=== PATIENT | female | born 1950 | race Caucasian/White ===

== ENCOUNTER 2017-03-05 13:14 | Outpatient (CLI) | payer MEDICARE ==
[2017-03-05 14:50] LABS: Bilirubin Negative (Negative); Blood, Urine Negative (Negative); Clarity CLEAR (Clear); Glucose, Urine (Dipstick) Negative (Negative); Leukocyte Negative (Negative); Nitrite Negative (Negative); Protein, Urine (Dipstick) Negative (Neg-Trace); Urobilinogen 0.2 mg/dL (0.2-1.0)
[2017-03-05 14:52] LABS: Bacteria/HPF None Seen HPF (None Seen); Hyaline Casts/LPF 0-3 HYALINE CAST LPF (0-3 Hyaline); RBC/HPF 0-3 HPF (0-3); Squamous Epithelial None Seen HPF (0-3); WBC/HPF None Seen HPF (0-3)
[2017-03-05 14:54] LABS: #Eosinphils 0.1 thou/uL (0.0-0.7); #Lymphocytes 1.8 thou/uL (1.20-3.40); #Monocytes 0.3 thou/uL (0.11-0.59); #Neutrophils 2.6 thou/uL (1.40-6.50); %Eosinophils 2.7 % (0.0-10.0); %Lymphocytes 37.5 % (21.0-51.0); %Monocytes 5.7 % (0.0-10.0); %Neutrophils 53.2 % (42.0-75.0); Hemoglobin 14.3 g/dL (12.0-16.0); Mean Corpuscular HGB CONC 32.8 g/dL (32.0-36.0); Mean Corpuscular Hemoglobin 32.5 pg (27.0-31.0); Mean Platelet Volume 7.7 fL (7.4-10.4); Platelet Count 244 thou/uL (130-400); RBC Distribution Width 11.5 % (11.5-14.5); White Blood Cell (WBC) Count 4.8 thou/uL (4.8-10.8)
[2017-03-05 15:03] LABS: PTT 27.4 SEC (22.9-36.1); Prothrombin Time 13.7 SEC (12.0-14.7)
[2017-03-05 15:18] LABS: Anion Gap 17 mmol/L (10-20); BUN (Urea Nitrogen) 19 mg/dL (9.8-20.1); Calc. Creatinine Clearance 0 mL/min (70-130); Calcium 10.1 mg/dL (7.8-10.44); Carbon Dioxide 21 mmol/L (23-31); Chloride 106 mmol/L (98-107); Estimated GFR-MDRD 72; Glucose 83 mg/dL (80-115); Potassium 3.9 mmol/L (3.5-5.1); Sodium 140 mmol/L (136-145)
--- NOTE | 2017-03-08 20:18 | EKG ---
Test Reason : Blood Pressure : / mmHG Vent. Rate : 065 BPM Atrial Rate : 065 BPM P-R Int : 178 ms QRS Dur : 092 ms QT Int : 448 ms P-R-T Axes : 057 044 036 degrees QTc Int : 465 ms Normal sinus rhythm Normal ECG No previous ECGs available Confirmed by FLORY BRADY, DR. Bennett ([id number]) on 03/08/2017 8:18:07 PM Referred By: IERO Confirmed By:DR. Sabrina RUTH MD
== END 2017-03-05 13:15 | disposition home or self-care (01) ==
LOC: LABBT 13:14
PROVIDERS: ATTEND Orthopaedic Surgery
DX: Z01.818 Encounter for other preprocedural examination (principal); Z96.652 Presence of left artificial knee joint; Z88.8 Allergy status to other drugs, medicaments and biological substances
CPT/HCPCS: 80048; 81001; 85025; 85610; 85730; 86850; 86900; 86901; 93005; 93010

== ENCOUNTER 2017-03-08 07:42 | Day surgery (SDC) | payer MEDICARE ==
[2017-03-08] MEDS ORDERED: CEFAZOLIN/Water 2 GM/20 ML SYRINGE ONE (08:15)
[2017-03-08] MEDS ORDERED: Tranexamic Acid 1,000 MG/100 ML BAG ONE ×2 (08:15→12:05)
[2017-03-08] MEDS ORDERED: Midazolam HCl 2 mg/2 ml Vial ONE (08:30)
[2017-03-08] MEDS ORDERED: Ropivacaine 0.2% HCl/PF 40 ML ONE (08:30)
[2017-03-08] MEDS ORDERED: Fentanyl 100 MCG/2 ML VIAL ONE ×2 (08:30→09:28)
[2017-03-08] MEDS ORDERED: Ropivacaine 0.2% 550 ML 550 ML NERVE BLCK SCH (09:10)
[2017-03-08] MEDS ORDERED: HYDROcodone/Acetaminophen 10/325 mg Tablet PO PRN (09:10)
[2017-03-08] MEDS ORDERED: Promethazine HCl 25 MG/ML VIAL IM PRN ×3 (09:10→11:50)
[2017-03-08] MEDS ORDERED: Zolpidem Tartrate 5 MG TAB PO PRN ×2 (09:10→11:35)
[2017-03-08] MEDS ORDERED: traMADol HCl 50 MG TAB PO PRN ×2 (09:10→11:35)
[2017-03-08] MEDS ORDERED: Ondansetron HCl/PF 4 MG/2 ML Vial IVP PRN ×3 (09:10→11:50)
[2017-03-08] MEDS ORDERED: Fentanyl 100 MCG/2 ML VIAL IV PRN (09:12)
[2017-03-08] MEDS ORDERED: Bupivacaine PF 0.5% 30 ML VIAL ONE (09:14)
[2017-03-08] MEDS ORDERED: diphenhydrAMINE 25 MG CAP PO PRN (11:35)
[2017-03-08] MEDS ORDERED: Acetaminophen 325 MG TAB PO PRN (11:35)
[2017-03-08] MEDS ORDERED: Tranexamic Acid 1,000 MG in Sodium Chloride 0.9% 100 ML IVPB SCH (11:45)
[2017-03-08] MEDS ORDERED: Promethazine HCl 25 MG/ML VIAL SLOW IVP PRN (11:50)
--- NOTE | 2017-03-08 12:07 | OP ---
DATE OF PROCEDURE: 03/08/2017 PREOPERATIVE DIAGNOSIS: Left knee osteoarthrosis. POSTOPERATIVE DIAGNOSIS: Left knee osteoarthrosis. PROCEDURE PERFORMED: Left total knee replacement using [employer] pinless navigation. SURGEON: Carlos Gay M.D. DIRECTOR OF FIRST IMPRESSIONS: Humberto Lyon PA-C. BLOOD LOSS: Minimal. COMPLICATIONS: None. ANESTHESIA: She did have general anesthetic. She did have preoperative blocks. She did go to [facility] room in stable condition. IMPLANTS: To the left knee is [place] Triathlon total knee system. We used a size 3 cruciate retain ing femur. We used a size 2 universal tibial baseplate. We used a size 2 x 9 mm CSX3 tibial bearing and asymmetric 27 x 8 X3 patella. DISPOSITION: She did go to recovery room in stable condition. INDICATIONS: A 66-year-old very active female who comes in complaining of left knee pain. The patie nt has tried dealing with this nonoperatively and at this time has failed. At this time, she wished to have her knee replaced. PROCEDURE IN DETAIL: After all appropriate consent forms were explained and signed, the patient was taken back to the Operating Room and at this time was given general anesthetic. Once the level of an esthesia was appropriate, a well-padded tourniquet was placed on the left leg and the leg was then pr epped and draped in standard surgical fashion. The limb was exsanguinated and tourniquet taken up to 300 mmHg. Midline incision was made with a 10 blade down through the skin and subcutaneous tissue. Bovie electrocautery was used to coagulate any brisk venous bleeding. A new blade was used to make a medial parapatellar arthrotomy. Small subperiosteal release was performed medially and excess fat pad was removed. The knee was flexed up to gain access to the femur. The femur was navigated and di stal femoral resection was made. Epicondylar access was used to align our sizing jig and this was pin lana in place. We sized our femur to be a 3, 4:1 cutting block was applied and pinned. Anterior and p osterior chamfer cuts were then made. We navigated out our proximal tibia and made our proximal tibi al resection. Spreaders were used to remove any posterior osteophytes off the back of the femur as w ell as remaining meniscal tissue. A long alignment taina was then used to achieve correct rotation of our tibial baseplate and a size 2 was chosen. This was pinned in place. We trialed the polyethylene and a CSX3 polyethylene gave us full extension and good stability throughout range of motion. Two t owel clips and a saw were used to cut our patella. Three lug nuts were drilled and 27 x 8 X3 patella was trialed which sat nicely in the trochlear groove. We then drilled our femur and punched our tib ia. All components were removed. The knee was thoroughly irrigated and dried. Cement was mixed int o the cement gun on the back table. Components were then placed. The knee was held out in full exte nsion until the cement had dried. All excess bone cement was removed. Multiple #2 Vicryl stitches a s well as a Quill was used to close our extensor mechanism. 0 Quill followed by a running Monoderm w as then used to close the skin. Surgicel glue was then used on the skin. Once this had dried, soft tissue dressing was applied to the limb, tourniquet was let down, and the toes pinked up nicely. The patient was then awakened and taken to the Recovery Room in stable condition. All counts were corre ct at the end of the case. The patient did receive preoperative IV antibiotics. The patient was inj ected with Exparel for postoperative pain relief.
[2017-03-08] MEDS ORDERED: Ketorolac Tromethamine 30 MG/ML VIAL ONE (12:11)
[2017-03-08] MEDS: Sodium Chloride 0.9% 1,000 ML IV SCH ×2 (13:17→21:42)
[2017-03-08] MEDS: Ketorolac Tromethamine 30 MG/ML VIAL IVP SCH ×2 (13:18→17:51)
[2017-03-08] MEDS ORDERED: Ropivacaine 0.5% HCl/PF (150 MG/30 ML VIAL) ONE (14:13)
--- NOTE | 2017-03-08 14:31 | PDOC.PN ---
- Subjective Encounter Start Date: 03/08/17 Encounter Start Time: 14:29 Pt seen for management of medical comorbidities, including hypertension. Denies chest pain, shortness of breath, fevers or chills. - Objective MAR Reviewed: Yes Vital Signs & Weight: Weight Weight 130 lb Phys Exam - Physical Examination Constitutional: NAD HEENT: moist MMs Neck: supple Respiratory: clear to auscultation bilateral Cardiovascular: RRR Gastrointestinal: soft s/p L knee surgery Psychiatric: normal affect Dx/Plan (1) HTN (hypertension) Code(s): I10 - ESSENTIAL (PRIMARY) HYPERTENSION Status: Chronic (2) GERD (gastroesophageal reflux disease) Code(s): K21.9 - GASTRO-ESOPHAGEAL REFLUX DISEASE WITHOUT ESOPHAGITIS Status: Chronic (3) Osteoarthritis Code(s): M19.90 - UNSPECIFIED OSTEOARTHRITIS, UNSPECIFIED SITE Status: Chronic (4) Osteoporosis Code(s): M81.0 - AGE-RELATED OSTEOPOROSIS W/O CURRENT PATHOLOGICAL FRACTURE Status: Chronic - Plan plan discussed w/ family, PT/OT, out of bed/ambulate * . Continue home medications. Monitor vital signs, titrate antihypertensives as needed. PRN IV hydralazine for blood pressure spikes. Continue PPI. Review of Systems - Review of Systems Respiratory: negative: Cough, Dry, Shortness of Breath, Hemoptysis, SOB with Excertion, Pleuritic Pain, Sputum, Wheezing Cardiovascular: negative: chest pain, palpitations, orthopnea, paroxysmal nocturnal dyspnea, edema, light headedness - Medications/Allergies Allergies/Adverse Reactions: Allergies Allergy/AdvReac Type Severity Reaction Status Date / Time naproxen Allergy DIZZINESS Verified 03/05/17 13:36 Medications: Current Medications Acetaminophen (Tylenol) 650 mg PO Q4H PRN PRN Reason: WHITT/ T > 101F; Mild Pain (1-3) Hydrocodone Bitart/Acetaminophen ([place] 10/325) 1 tab PO Q4H PRN PRN Reason: Pain (1-3) Hydrocodone Bitart/Acetaminophen ([place] 10/325) 2 tab PO Q4H PRN PRN Reason: PAIN (4-6) Aspirin (Aspirin) 325 mg PO BID [facility] Cefazolin Sodium (Ancef) 2 gm SLOW IVP 0100,0900,1700 [facility] Stop: 03/09/17 01:01 Diphenhydramine HCl (Benadryl) 25 mg PO Q6H PRN PRN Reason: Itching Fentanyl (Sublimaze) 50 mcg IV Q1H PRN PRN Reason: BREAKTHRU PAIN Last Admin: 03/08/17 13:21 Dose: 50 mcg Fentanyl (Pacu-Sublimaze) 50 mcg SLOW IVP Q10MIN PRN PRN Reason: Moderate to Severe Pain (6-10) Stop: 03/08/17 14:50 Ferrous Gluconate (Fergon) 324 mg PO BID [facility] Ropivacaine (Ropivacaine 0.2% 550 Ml) 550 mls @ 10 mls/hr NERVE BLCK INF [facility] Sodium Chloride (Normal Saline 0.9%) 1,000 mls @ 100 mls/hr IV .Q10H [facility] Last Admin: 03/08/17 13:17 Dose: Not Given Vancomycin HCl 1 gm/ Device 200 mls @ 200 mls/hr IVPB 2100 [facility] Stop: 03/08/17 23:00 Iron/Minerals/Multivitamins (Theragran M) 1 tab PO DAILY [facility] Ketorolac Tromethamine (Toradol) 15 mg IVP Q6HR [facility] Stop: 03/10/17 06:01 Last Admin: 03/08/17 13:18 Dose: Not Given Lisinopril (Zestril) 10 mg PO QAM [facility] Loratadine (Claritin) 10 mg PO QAM [facility] Ondansetron HCl (Zofran) 4 mg IVP Q6H PRN PRN Reason: Nausea/Vomiting Ondansetron HCl (Zofran) 4 mg IVP Q6H PRN PRN Reason: Nausea/Vomiting Ondansetron HCl (Pacu-Zofran) 4 mg IVP ONE PRN PRN Reason: Nausea/Vomiting Stop: 03/08/17 14:50 Pantoprazole Sodium (Protonix) 40 mg PO QAM [facility] Promethazine HCl (Phenergan) 12.5 mg IM Q4H PRN PRN Reason: Nausea Promethazine HCl (Phenergan) 12.5 mg IM Q4H PRN PRN Reason: Nausea/Vomiting Promethazine HCl (Pacu-Phenergan) 6.25 mg SLOW IVP ONE PRN PRN Reason: Nausea/Vomiting Stop: 03/08/17 14:50 Promethazine HCl (Pacu-Phenergan) 6.25 mg IM ONE PRN PRN Reason: Nausea/Vomiting Stop: 03/08/17 14:50 Senna/Docusate Sodium (Senokot S) 2 tab PO BID [facility] Sodium Chloride (Flush - Normal Saline) 10 ml IVF PRN PRN PRN Reason: Saline Flush Tramadol HCl (Ultram) 50 mg PO Q6H PRN PRN Reason: Mild Pain (1-3) Tramadol HCl (Ultram) 100 mg PO Q6H PRN PRN Reason: Moderate Pain 4-6 Zolpidem Tartrate (Ambien) 5 mg PO HSPRN PRN PRN Reason: Insomnia
[2017-03-08] MEDS ORDERED: hydrALAZINE 20 MG/ML VIAL SLOW IVP PRN (14:34)
[2017-03-08] MEDS ORDERED: Propofol 200 MG/20 ML VIAL ONE (14:43)
[2017-03-08] MEDS ORDERED: PHENYLEPHRINE-NS 100 MCG/ML 10 ML SYRINGE ONE (14:43)
[2017-03-08] MEDS: CEFAZOLIN/Water 2 GM/20 ML SYRINGE SLOW IVP SCH (17:54)
[2017-03-08] MEDS: HYDROcodone/Acetaminophen 10/325 mg Tablet PO PRN ×2 (18:12→21:38)
[2017-03-08] MEDS ORDERED: Vancomycin HCl 1 GM in Premix Bag 1 BAG IVPB SCH (21:00)
[2017-03-08] MEDS: Aspirin 325 MG TAB PO SCH (21:39)
[2017-03-09] MEDS: Ketorolac Tromethamine 30 MG/ML VIAL IVP SCH ×4 (00:08→17:41)
[2017-03-09] MEDS: CEFAZOLIN/Water 2 GM/20 ML SYRINGE SLOW IVP SCH (00:10)
[2017-03-09 05:38] LABS: Hemoglobin 10.5 g/dL (12.0-16.0); Mean Corpuscular HGB CONC 33.4 g/dL (32.0-36.0); Mean Corpuscular Hemoglobin 33.9 pg (27.0-31.0); Mean Platelet Volume 7.8 fL (7.4-10.4); Platelet Count 160 thou/uL (130-400); RBC Distribution Width 11.7 % (11.5-14.5); Red Blood Cell (RBC) Count 3.11 mill/uL (4.20-5.40); White Blood Cell (WBC) Count 3.8 thou/uL (4.8-10.8)
[2017-03-09] MEDS: HYDROcodone/Acetaminophen 10/325 mg Tablet PO PRN ×4 (07:01→21:10)
[2017-03-09] MEDS: Sodium Chloride 0.9% 1,000 ML IV SCH ×2 (08:14→17:33)
[2017-03-09] MEDS: Aspirin 325 MG TAB PO SCH ×2 (08:44→21:04)
[2017-03-09] MEDS: Loratadine 10 MG TAB PO SCH (08:44)
[2017-03-09] MEDS: Multivitamin W/ Minerals 1 TAB PO SCH (08:44)
[2017-03-09] MEDS: Senokot S 8.6-50 MG TAB PO SCH ×2 (08:44→21:04)
[2017-03-09] MEDS: Ferrous Gluconate 324 MG TAB PO SCH ×2 (08:44→21:04)
[2017-03-09] MEDS: traMADol HCl 50 MG TAB PO PRN (08:57)
[2017-03-09] MEDS: Lisinopril 10 MG TAB PO SCH (11:23)
[2017-03-09 13:49] VITALS: BMI 25.4
[2017-03-09] MEDS ORDERED: ALPRAZolam 0.5 MG TAB PO SCH (15:30)
--- NOTE | 2017-03-09 17:15 | PDOC.PN ---
- Subjective Encounter Start Date: 03/09/17 Encounter Start Time: 08:20 Pt seen for followup re: hypertension. No cheast pain, shortness fo breath, fevers or chills. - Objective Vital Signs & Weight: Vital Signs (12 hours) Temp Pulse Resp BP BP Pulse Ox 03/09/17 11:45 97.8 F 62 20 128/77 95 03/09/17 11:23 136/83 03/09/17 08:00 98.5 F 66 20 98 03/09/17 07:40 98.5 F 66 20 111/66 98 Weight Admit Weight 130 lb Weight 130 lb I&O: 03/08/17 03/09/17 03/10/17 06:59 06:59 06:59 Intake Total 1350 1400 Balance 1350 1400 Result Diagrams: 03/09/17 04:59 Phys Exam - Physical Examination Constitutional: NAD HEENT: moist MMs Neck: supple Respiratory: clear to auscultation bilateral Cardiovascular: RRR Gastrointestinal: soft Musculoskeletal: no edema s/p L knee surgery Neurological: moves all 4 limbs Psychiatric: normal affect Dx/Plan (1) HTN (hypertension) Code(s): I10 - ESSENTIAL (PRIMARY) HYPERTENSION Status: Chronic (2) GERD (gastroesophageal reflux disease) Code(s): K21.9 - GASTRO-ESOPHAGEAL REFLUX DISEASE WITHOUT ESOPHAGITIS Status: Chronic (3) Osteoarthritis Code(s): M19.90 - UNSPECIFIED OSTEOARTHRITIS, UNSPECIFIED SITE Status: Chronic (4) Osteoporosis Code(s): M81.0 - AGE-RELATED OSTEOPOROSIS W/O CURRENT PATHOLOGICAL FRACTURE Status: Chronic - Plan PT/OT, out of bed/ambulate * . Monitor vital signs and titrate blood pressure medications as needed. Review of Systems - Medications/Allergies Allergies/Adverse Reactions: Allergies Allergy/AdvReac Type Severity Reaction Status Date / Time naproxen Allergy DIZZINESS Verified 03/05/17 13:36 Medications: Current Medications Acetaminophen (Tylenol) 650 mg PO Q4H PRN PRN Reason: WHITT/ T > 101F; Mild Pain (1-3) Hydrocodone Bitart/Acetaminophen ([place] 10/325) 1 tab PO Q4H PRN PRN Reason: Pain (1-3) Hydrocodone Bitart/Acetaminophen ([place] 10/325) 2 tab PO Q4H PRN PRN Reason: PAIN (4-6) Last Admin: 03/09/17 15:20 Dose: 2 tab Alprazolam (Xanax) 0.5 mg PO BID [facility] Alprazolam (Xanax) 0.5 mg PO NOW [facility] Stop: 03/09/17 17:30 Last Admin: 03/09/17 15:25 Dose: 0.5 mg Aspirin (Aspirin) 325 mg PO BID [facility] Last Admin: 03/09/17 08:44 Dose: 325 mg Diphenhydramine HCl (Benadryl) 25 mg PO Q6H PRN PRN Reason: Itching Fentanyl (Sublimaze) 50 mcg IV Q1H PRN PRN Reason: BREAKTHRU PAIN Last Admin: 03/08/17 13:21 Dose: 50 mcg Ferrous Gluconate (Fergon) 324 mg PO BID [facility] Last Admin: 03/09/17 08:44 Dose: 324 mg Hydralazine HCl (Apresoline) 10 mg SLOW IVP Q6H PRN PRN Reason: SBP Greater Than 170 Ropivacaine (Ropivacaine 0.2% 550 Ml) 550 mls @ 10 mls/hr NERVE BLCK INF [facility] Sodium Chloride (Normal Saline 0.9%) 1,000 mls @ 100 mls/hr IV .Q10H [facility] Last Admin: 03/09/17 08:14 Dose: Not Given Iron/Minerals/Multivitamins (Theragran M) 1 tab PO DAILY [facility] Last Admin: 03/09/17 08:44 Dose: 1 tab Ketorolac Tromethamine (Toradol) 15 mg IVP Q6HR [facility] Stop: 03/10/17 06:01 Last Admin: 03/09/17 11:12 Dose: 15 mg Lisinopril (Zestril) 10 mg PO QAM [facility] Last Admin: 03/09/17 11:23 Dose: 10 mg Loratadine (Claritin) [facility] Last Admin: 03/09/17 08:44 Dose: 10 mg Ondansetron HCl (Zofran) 4 mg IVP Q6H PRN PRN Reason: Nausea/Vomiting Ondansetron HCl (Zofran) 4 mg IVP Q6H PRN PRN Reason: Nausea/Vomiting Pantoprazole Sodium (Protonix) 40 [facility] [place] Last Admin: 03/09/17 08:44 Dose: 40 mg Promethazine HCl (Phenergan) 12.5 mg IM Q4H PRN PRN Reason: Nausea Promethazine HCl (Phenergan) 12.5 mg IM Q4H PRN PRN Reason: Nausea/Vomiting Senna/Docusate Sodium (Senokot S) 2 tab PO BID [facility] Last Admin: 03/09/17 08:44 Dose: 2 tab Sodium Chloride (Flush - Normal Saline) 10 ml IVF PRN PRN PRN Reason: Saline Flush Tramadol HCl (Ultram) 50 mg PO Q6H PRN PRN Reason: Mild Pain (1-3) Last Admin: 03/09/17 08:57 Dose: 50 mg Tramadol HCl (Ultram) 100 mg PO Q6H PRN PRN Reason: Moderate Pain 4-6 Zolpidem Tartrate (Ambien) 5 mg PO HSPRN PRN PRN Reason: Insomnia
[2017-03-09] MEDS: ALPRAZolam 0.5 MG TAB PO SCH (21:13)
[2017-03-10] MEDS: Ketorolac Tromethamine 30 MG/ML VIAL IVP SCH ×2 (00:13→05:52)
[2017-03-10] MEDS: Sodium Chloride 0.9% 1,000 ML IV SCH ×2 (01:18→10:49)
[2017-03-10] MEDS: HYDROcodone/Acetaminophen 10/325 mg Tablet PO PRN ×2 (02:53→08:38)
[2017-03-10 05:44] LABS: Hemoglobin 9.9 g/dL (12.0-16.0); Mean Corpuscular HGB CONC 32.5 g/dL (32.0-36.0); Mean Corpuscular Hemoglobin 32.7 pg (27.0-31.0); Platelet Count 149 thou/uL (130-400); RBC Distribution Width 11.5 % (11.5-14.5); Red Blood Cell (RBC) Count 3.03 mill/uL (4.20-5.40)
[2017-03-10] MEDS: Ferrous Gluconate 324 MG TAB PO SCH (08:34)
[2017-03-10] MEDS: Aspirin 325 MG TAB PO SCH (08:35)
[2017-03-10] MEDS: Multivitamin W/ Minerals 1 TAB PO SCH (08:35)
[2017-03-10] MEDS: Loratadine 10 MG TAB PO SCH (08:35)
[2017-03-10] MEDS: Lisinopril 10 MG TAB PO SCH (08:35)
[2017-03-10] MEDS: Senokot S 8.6-50 MG TAB PO SCH (08:35)
[2017-03-10 08:36] VITALS: BP 107/72
[2017-03-10] MEDS: ALPRAZolam 0.5 MG TAB PO SCH (08:40)
[2017-03-10 09:08] VITALS: TEMP 98.5
[2017-03-10] MEDS: traMADol HCl 50 MG TAB PO PRN (11:28)
== END 2017-03-10 12:20 | disposition home or self-care (01) ==
LOC: SDC 07:42 → SJJU 11:35 → EDSTATUS 13:00 → SDC 03-10 12:20
PROVIDERS: ATTEND Orthopaedic Surgery
PROC: 0SRD069 Replacement of Left Knee Joint with Oxidized Zirconium on Polyethylene Synthetic Substitute, Cemented, Open Approach (ICD-10-PCS; principal; 2017-03-08)
DX: M17.12 Unilateral primary osteoarthritis, left knee (principal); I10 Essential (primary) hypertension; K21.9 Gastro-esophageal reflux disease without esophagitis; F41.9 Anxiety disorder, unspecified; M81.0 Age-related osteoporosis without current pathological fracture; M19.90 Unspecified osteoarthritis, unspecified site; Z79.1 Long term (current) use of non-steroidal anti-inflammatories (NSAID); Z79.899 Other long term (current) drug therapy; Z88.6 Allergy status to analgesic agent; Z98.51 Tubal ligation status; Z90.49 Acquired absence of other specified parts of digestive tract; Z98.890 Other specified postprocedural states; Z98.891 History of uterine scar from previous surgery; Z87.01 Personal history of pneumonia (recurrent)
CPT/HCPCS: 27447; 85027; 97116 ×2; 97139; 97150; 97530 ×2; A4306; C1713; C1776; G8978; G8979; 36415; J1885; J2250; J2704; J2795; J3010; J3370; S0020

== ENCOUNTER 2018-12-15 06:53 | Outpatient (CLI) | payer MEDICARE ==
[2018-12-15 13:43] LABS: #Eosinphils 0.1 thou/uL (0.0-0.7); #Lymphocytes 1.6 thou/uL (1.20-3.40); #Monocytes 0.3 thou/uL (0.11-0.59); #Neutrophils 2.2 thou/uL (1.40-6.50); %Basophils 0.8 % (0.0-1.0); %Eosinophils 2.9 % (0.0-10.0); %Lymphocytes 37.7 % (21.0-51.0); %Monocytes 6.7 % (0.0-10.0); %Neutrophils 51.9 % (42.0-75.0); Hemoglobin 12.8 g/dL (12.0-16.0); Mean Corpuscular HGB CONC 34.2 g/dL (32.0-36.0); Mean Corpuscular Hemoglobin 33.8 pg (27.0-31.0); Mean Corpuscular Volume 98.8 fL (78.0-98.0); Mean Platelet Volume 7.7 fL (7.4-10.4); Platelet Count 210 thou/uL (130-400); RBC Distribution Width 11.5 % (11.5-14.5); White Blood Cell (WBC) Count 4.2 thou/uL (4.8-10.8)
[2018-12-15 13:52] LABS: INR-International Normal Ratio 1.1; Prothrombin Time 13.8 SEC (12.0-14.7)
[2018-12-15 14:00] LABS: Bacteria/HPF None Seen HPF (None Seen); Bilirubin Negative (Negative); Blood, Urine Negative (Negative); Clarity Clear (Clear); Glucose, Urine (Dipstick) Normal (Negative); Leukocyte Negative Leu/uL (Negative); Nitrite Negative (Negative); Protein, Urine (Dipstick) Negative (Neg-Trace); RBC/HPF 0-3 HPF (0-3); Squamous Epithelial 0-3 HPF (0-3); Urobilinogen Normal mg/dL (Less than 2); WBC/HPF 0-3 HPF (0-3)
[2018-12-15 14:05] LABS: Anion Gap 14 mmol/L (10-20); BUN (Urea Nitrogen) 18 mg/dL (9.8-20.1); Calc. Creatinine Clearance 0 mL/min (70-130); Calcium 9.8 mg/dL (7.8-10.44); Carbon Dioxide 23 mmol/L (23-31); Chloride 107 mmol/L (98-107); Estimated GFR-MDRD 64; Glucose 86 mg/dL (80-115); Potassium 3.8 mmol/L (3.5-5.1); Sodium 140 mmol/L (136-145)
--- NOTE | 2018-12-15 16:54 | EKG ---
Test Reason : Blood Pressure : / mmHG Vent. Rate : 080 BPM Atrial Rate : 080 BPM P-R Int : 144 ms QRS Dur : 092 ms QT Int : 420 ms P-R-T Axes : 065 064 047 degrees QTc Int : 484 ms Normal sinus rhythm Nonspecific T wave abnormality Cannot rule out Anterior infarct , age undetermined Abnormal ECG Confirmed by PATRICIA NOE ([id number]) on 12/15/2018 4:54:17 PM Referred By: GERARDO Confirmed By:PATRICIA NOE
== END 2018-12-15 06:54 | disposition home or self-care (01) ==
LOC: LABBT 06:53
PROVIDERS: ATTEND Orthopaedic Surgery
DX: Z01.818 Encounter for other preprocedural examination (principal); M17.11 Unilateral primary osteoarthritis, right knee
CPT/HCPCS: 80048; 81001; 85025; 85610; 87081; 93005; 93010

== ENCOUNTER 2018-12-26 06:43 | Day surgery (SDC) | payer MEDICARE ==
[2018-12-26] MEDS ORDERED: Tranexamic Acid 1,000 MG/10 ML VIAL ONE (07:10)
[2018-12-26] MEDS ORDERED: Sodium Chloride 0.9% 100 ML ONE (07:10)
[2018-12-26] MEDS ORDERED: Midazolam HCl 2 mg/2 ml Vial ONE (08:13)
[2018-12-26] MEDS ORDERED: Fentanyl 100 MCG/2 ML VIAL ONE ×3 (08:13→12:25)
[2018-12-26] MEDS ORDERED: Ropivacaine HCl/PF 250 ML in Premix Bag 1 BAG NERVE BLCK SCH (08:47)
[2018-12-26] MEDS ORDERED: Promethazine HCl 25 MG/ML VIAL IM PRN ×3 (08:47→10:14)
[2018-12-26] MEDS ORDERED: Zolpidem Tartrate 5 MG TAB PO PRN ×2 (08:47→10:14)
[2018-12-26] MEDS ORDERED: Ondansetron PF 4 MG/2 ML Vial IVP PRN ×2 (08:47→10:14)
[2018-12-26] MEDS ORDERED: traMADol HCl 50 MG TAB PO PRN (08:47)
[2018-12-26] MEDS ORDERED: Fentanyl 100 MCG/2 ML VIAL IV PRN (08:48)
[2018-12-26] MEDS ORDERED: Bupivacaine PF 0.5% 30 ML VIAL ONE ×2 (09:28→09:30)
[2018-12-26] MEDS ORDERED: Lidocaine 1% PF 5 ML VIAL ONE (10:07)
[2018-12-26] MEDS ORDERED: Ondansetron PF 4 MG/2 ML Vial ONE (10:07)
[2018-12-26] MEDS ORDERED: PROPOFOL 200 MG/20 ML VIAL ONE (10:07)
[2018-12-26] MEDS ORDERED: Promethazine HCl 25 MG/ML VIAL SLOW IVP PRN (10:14)
[2018-12-26] MEDS ORDERED: diphenhydrAMINE 25 MG CAP PO PRN (10:14)
[2018-12-26] MEDS ORDERED: Ondansetron HCl/PF 4 MG/2 ML Vial IVP PRN (10:14)
[2018-12-26] MEDS ORDERED: Acetaminophen 325 MG TAB PO PRN (10:14)
[2018-12-26] MEDS ORDERED: Tranexamic Acid 1,000 MG in Sodium Chloride 0.9% 100 ML IVPB SCH (10:15)
[2018-12-26] MEDS: Sodium Chloride 0.9% 1,000 ML IV SCH ×3 (13:20→20:35)
[2018-12-26] MEDS ORDERED: Ropivacaine 0.2% HCl/PF (40 MG/20 ML VIAL) ONE (13:24)
[2018-12-26] MEDS ORDERED: Bupivacaine HCl 0.5%/Epinephrine 1:200,000/PF 30 ml Vial ONE (13:24)
[2018-12-26] MEDS: Ketorolac Tromethamine 30 MG/ML VIAL IVP SCH ×2 (13:25→17:56)
[2018-12-26] MEDS: HYDROcodone/Acetaminophen 10/325 mg Tablet PO PRN ×3 (13:37→23:53)
--- NOTE | 2018-12-26 14:16 | OP ---
DATE OF PROCEDURE: 12/26/2018 RESIDENTIAL SUPPORT WORKER: Ernie Lyon PA-C. PREOPERATIVE DIAGNOSIS: Right knee osteoarthrosis. POSTOPERATIVE DIAGNOSIS: Right knee osteoarthrosis. PROCEDURE: Right total knee replacement using [employer] pinless navigation system. ANESTHESIA: General anesthetic as well as preoperative block. BLOOD LOSS: Minimal. COMPLICATIONS: None. TOURNIQUET TIME: DISPOSITION: Recovery room in stable condition. IMPLANTS: To the right knee, [place] Triathlon total knee system. The femur was a size 2 cruciate retaining femur. We used a size 1 primary tibial base plate. We used a size 1 x 11 mm CS X3 tibial bearing, and a symmetric 27 x 8 X3 patella. INDICATIONS: A 68-year-old female is presenting for right knee replacement. She has had years of pain, which has gotten significantly worse over the last 3-6 months and at this time wished to have her knee replaced. PROCEDURE IN DETAIL: After all appropriate consent forms were explained and signed, the patient was taken back to the operating room and at this time was given general anesthetic. Once the level of anesthesia was appropriate, a well-padded tourniquet was placed on the right leg, and the leg was then prepped and draped in standard surgical fashion. The limb was exsanguinated and tourniquet taken up to 300 mmHg. Midline incision was made with a 10 blade down through the skin and subcutaneous tissue. Bovie electrocautery was used to coagulate any brisk venous bleeding. A new blade was used to make a medial parapatellar arthrotomy. Small subperiosteal release was performed medially and excess fat pad was removed. The knee was flexed up to gain access to the femur. The femur was navigated and distal femoral resection was made. Epicondylar access was used to align our sizing jig and this was pinned in place. We sized our femur to be a size 2 cruciate retaining femur. 4:1 cutting block was applied and pinned. Anterior and posterior chamfer cuts were then made. We navigated out our proximal tibia and made our proximal tibial resection. Spreaders were used to remove any posterior osteophytes off the back of the femur as well as remaining meniscal tissue. A long alignment taina was then used to achieve correct rotation of our tibial baseplate and a size 1 primary tibial base plate was chosen. This was pinned in place. We trialed the polyethylene and a 1 x 11 mm CS X3 tibial bearing polyethylene gave us full extension and good stability throughout range of motion. Two towel clips and a saw were used to cut our patella. Three lug nuts were drilled and a symmetric 27 x 8 X3 patella was trialed which sat nicely in the trochlear groove. We then drilled our femur and punched our tibia. All components were removed. The knee was thoroughly irrigated and dried. Cement was mixed into the cement gun on the back table. Components were then placed. The knee was held out in full extension until the cement had dried. All excess bone cement was removed. Multiple #2 Vicryl stitches as well as a Quill were used to close our extensor mechanism. 0 Quill followed by a running Monoderm was then used to close the skin. Surgicel glue was then used on the skin. Once this had dried, soft tissue dressing was applied to the limb, tourniquet was let down, and the toes pinked up nicely. The patient was then awakened and taken to the recovery room in stable condition. All counts were correct at the end of the case. The patient did receive preoperative IV antibiotics. The patient was injected with Marcaine for postoperative pain relief. Job ID: [id number] [facility]
[2018-12-26] MEDS ORDERED: CEFAZOLIN 2 GM in Premix Bag 1 BAG IVPB SCH (15:00)
[2018-12-26] MEDS ORDERED: Acetaminophen 650 MG Suppository PR PRN (15:18)
[2018-12-26] MEDS ORDERED: Fioricet 325/50/40 mg Tablet PO SCH (15:30)
[2018-12-26 15:48] LABS: #Lymphocytes 0.7 thou/uL (1.20-3.40); #Monocytes 0.4 thou/uL (0.11-0.59); #Neutrophils 5.4 thou/uL (1.40-6.50); %Basophils 0.3 % (0.0-1.0); %Eosinophils 0.6 % (0.0-10.0); %Lymphocytes 11.3 % (21.0-51.0); %Monocytes 5.9 % (0.0-10.0); %Neutrophils 81.9 % (42.0-75.0); Hemoglobin 11.2 g/dL (12.0-16.0); Mean Corpuscular HGB CONC 33.2 g/dL (32.0-36.0); Mean Corpuscular Hemoglobin 32.8 pg (27.0-31.0); Mean Corpuscular Volume 99.1 fL (78.0-98.0); Mean Platelet Volume 7.3 fL (7.4-10.4); Platelet Count 184 thou/uL (130-400); RBC Distribution Width 11.6 % (11.5-14.5); Red Blood Cell (RBC) Count 3.41 mill/uL (4.20-5.40); White Blood Cell (WBC) Count 6.6 thou/uL (4.8-10.8)
[2018-12-26 16:09] LABS: ALT (SGPT) 22 U/L (8-55); AST (SGOT) 32 U/L (5-34); Albumin 3.9 g/dL (3.4-4.8); Alkaline Phosphatase 49 U/L (40-110); Anion Gap 12 mmol/L (10-20); BUN (Urea Nitrogen) 13 mg/dL (9.8-20.1); Bilirubin, Total 0.7 mg/dL (0.2-1.2); Calc. Creatinine Clearance 57 mL/min (70-130); Carbon Dioxide 24 mmol/L (23-31); Chloride 106 mmol/L (98-107); Estimated GFR-MDRD 62; Globulin 2.2 g/dL (2.4-3.5); Glucose 140 mg/dL (80-115); Potassium 3.5 mmol/L (3.5-5.1); Protein, Total 6.1 g/dL (6.0-8.3); Sodium 138 mmol/L (136-145)
[2018-12-26 17:35] VITALS: BMI 25.7
[2018-12-26] MEDS: CEFAZOLIN 2 GM in Premix Bag 1 BAG IVPB SCH (17:54)
--- NOTE | 2018-12-26 18:43 | CON ---
DATE OF CONSULTATION: 12/26/2018 REASON FOR CONSULTATION: Medical management. CHIEF COMPLAINT: Mild headache. HISTORY OF PRESENT ILLNESS: Ms. Ayala is a pleasant 68-year-old woman, who is status post right total knee replacement done by Dr. Gay earlier today, who has a past medical history of hypertension and GERD. She has been referred for medical management. The patient states that she is feeling well at this present time. Denies having any significant pain. Does report having a mild headache and was just given Sabael an hour ago. She states she does suffer from headaches occasionally. She denies any vision changes. No associated nausea or vomiting. She is waiting for her lunch to arrive. She is an otherwise following without any complaints. She is unsure for her blood pressure, it is like at home and she does not check it daily. She states her reflux is very well controlled with pantoprazole. REVIEW OF SYSTEMS: Denies having any recent fevers, chills, or sweats. No chest pain, palpitations, or shortness of breath. No dizziness. Denies any abdominal pain or cramping. She usually has normal bowel movements. Denies any urinary symptoms. All other review of systems are negative. PAST MEDICAL HISTORY: 1. Hypertension. 2. GERD. PAST SURGICAL HISTORY: 1. Left total knee replacement. 2. x2. 3. Umbilical hernia repair. 4. Rhinoplasty x2. 5. Appendectomy. 6. Tubal ligation. SOCIAL HISTORY: The patient denies any tobacco use, alcohol consumption, or illicit drug use. FAMILY HISTORY: Noncontributory. PHYSICAL EXAMINATION: GENERAL: The patient appears well developed, well nourished, is in no acute distress. VITAL SIGNS: Temperature, 97, pulse 72, respirations 18, O2 saturation 100% on room air. Blood pressure documented in the chart is 170/82. At bedside, it is 156/ 74. HEENT: Normocephalic, atraumatic. Pupils are equal, round, and reactive to light. Sclerae without icterus. Oropharynx is clear. NECK: Supple. LUNGS: Clear to auscultation bilaterally without any wheezes, rales, or rhonchi. CARDIAC: Regular rate and rhythm. ABDOMEN: Soft, nontender, nondistended. Normoactive bowel sounds present. EXTREMITIES: No lower leg edema. Mechanical SCDs in place. NEUROLOGIC: Alert and oriented x3. No neuro deficits. SKIN: Warm and dry. INVESTIGATIONS: None. IMPRESSION AND PLAN: Ms. Ayala is a pleasant 68-year-old woman, who is status post right total knee replacement, who has been referred for management of the following. 1. Hypertension. Blood pressure currently in the 150 systolic. The patient is unsure what her blood pressure is normally not like at home but was just diagnosed with hypertension two years ago. She is compliant with her medication. We will continue her home medication and monitor her blood pressure. 2. Headache. The patient states it is mild and she does have occasional headaches. Given Sabael an hour ago which not helped. We will try a dose of Fioricet. No other associated symptoms. 3. Gastroesophageal reflux disease. She will continue Protonix, which she takes at home. 4. Deep venous thrombosis prophylaxis. Mechanical sequential compression devices. 5. Code status, full. Her surrogate decision maker is her , Jeovanny Ayala. The patient's case discussed with attending who agrees upon care as described above. Job ID: [id number] [facility]
[2018-12-26] MEDS ORDERED: Vancomycin HCl 1 GM in Premix Bag 1 BAG IVPB SCH (19:00)
[2018-12-26] MEDS: Ferrous Gluconate 324 MG TAB PO SCH (20:35)
[2018-12-26] MEDS: Senokot S 8.6-50 MG TAB PO SCH (20:35)
[2018-12-26] MEDS: Aspirin 81 mg Enteric Coated Tablet PO SCH (20:36)
[2018-12-27] MEDS: Ketorolac Tromethamine 30 MG/ML VIAL IVP SCH ×5 (00:24→23:19)
[2018-12-27] MEDS: CEFAZOLIN 2 GM in Premix Bag 1 BAG IVPB SCH (02:30)
[2018-12-27 05:20] LABS: #Eosinphils 0.1 thou/uL (0.0-0.7); #Lymphocytes 0.8 thou/uL (1.20-3.40); #Monocytes 0.3 thou/uL (0.11-0.59); #Neutrophils 2.2 thou/uL (1.40-6.50); %Basophils 0.4 % (0.0-1.0); %Eosinophils 3.3 % (0.0-10.0); %Lymphocytes 23.2 % (21.0-51.0); %Monocytes 8.4 % (0.0-10.0); %Neutrophils 64.8 % (42.0-75.0); Hemoglobin 8.7 g/dL (12.0-16.0); Mean Corpuscular HGB CONC 32.6 g/dL (32.0-36.0); Mean Corpuscular Hemoglobin 32.8 pg (27.0-31.0); Mean Platelet Volume 7.5 fL (7.4-10.4); Platelet Count 144 thou/uL (130-400); RBC Distribution Width 11.5 % (11.5-14.5); Red Blood Cell (RBC) Count 2.66 mill/uL (4.20-5.40); White Blood Cell (WBC) Count 3.4 thou/uL (4.8-10.8)
[2018-12-27 05:29] LABS: Anion Gap 9 mmol/L (10-20); BUN (Urea Nitrogen) 12 mg/dL (9.8-20.1); Calc. Creatinine Clearance 60 mL/min (70-130); Calcium 7.8 mg/dL (7.8-10.44); Carbon Dioxide 25 mmol/L (23-31); Chloride 107 mmol/L (98-107); Estimated GFR-MDRD 65; Glucose 102 mg/dL (80-115); Potassium 3.7 mmol/L (3.5-5.1); Sodium 137 mmol/L (136-145)
[2018-12-27] MEDS: HYDROcodone/Acetaminophen 10/325 mg Tablet PO PRN ×4 (05:42→17:54)
[2018-12-27] MEDS: Sodium Chloride 0.9% 1,000 ML IV SCH ×2 (06:55→18:01)
[2018-12-27] MEDS: Multivitamin W/ Minerals 1 TAB PO SCH (08:36)
[2018-12-27] MEDS: Aspirin 81 mg Enteric Coated Tablet PO SCH ×2 (08:36→20:29)
[2018-12-27] MEDS: Valsartan 80 MG TAB PO SCH (08:37)
[2018-12-27] MEDS: Ferrous Gluconate 324 MG TAB PO SCH ×2 (08:38→20:30)
[2018-12-27] MEDS: Loratadine 10 MG TAB PO SCH (08:38)
[2018-12-27] MEDS: Senokot S 8.6-50 MG TAB PO SCH ×2 (08:40→20:30)
--- NOTE | 2018-12-27 09:41 | PRG ---
DATE OF SERVICE: 12/27/2018 SUBJECTIVE: Lindy is a 68-year-old female, postoperative day 1 from a right total knee arthroplasty. She was able to rise from seated to standing position yesterday evening. She has a little discomfort this morning. OBJECTIVE: VITAL SIGNS: Temperature 98.1, pulse 73, respiratory rate 16, O2 saturation is 100% on 2 L nasal cannula, blood pressure is 107/66. GENERAL: She is alert and oriented to person, place, time, and situation. Responsive and appropriate with examiner. Grossly nonfocal. EXTREMITIES: No strikethrough is noted. She is neurovascularly intact in the right lower extremity. LABORATORY DATA: Hemoglobin and hematocrit 8.7 and 26.7. IMPRESSION: 1. A 68-year-old female, postoperative day 1, right total knee arthroplasty. 2. Anemia. PLAN: Continue current care. Initiate physical therapy. Recheck tomorrow. Probable discharge home tomorrow. Job ID: [id number]
[2018-12-27] MEDS: traMADol HCl 50 MG TAB PO PRN (15:01)
[2018-12-28] MEDS: Sodium Chloride 0.9% 1,000 ML IV SCH ×3 (01:57→22:33)
[2018-12-28] MEDS: HYDROcodone/Acetaminophen 10/325 mg Tablet PO PRN ×2 (03:27→08:16)
[2018-12-28] MEDS: traMADol HCl 50 MG TAB PO PRN (05:38)
[2018-12-28] MEDS: Ketorolac Tromethamine 30 MG/ML VIAL IVP SCH (05:41)
[2018-12-28 06:06] LABS: Hemoglobin 8.9 g/dL (12.0-16.0); Mean Corpuscular HGB CONC 33.5 g/dL (32.0-36.0); Mean Corpuscular Hemoglobin 33.9 pg (27.0-31.0); Mean Platelet Volume 7.5 fL (7.4-10.4); Platelet Count 150 thou/uL (130-400); RBC Distribution Width 11.4 % (11.5-14.5); Red Blood Cell (RBC) Count 2.61 mill/uL (4.20-5.40)
[2018-12-28] MEDS: Aspirin 81 mg Enteric Coated Tablet PO SCH ×2 (08:14→20:14)
[2018-12-28] MEDS: Senokot S 8.6-50 MG TAB PO SCH ×2 (08:15→20:14)
[2018-12-28] MEDS: Valsartan 80 MG TAB PO SCH (08:16)
[2018-12-28] MEDS: Multivitamin W/ Minerals 1 TAB PO SCH (08:16)
[2018-12-28] MEDS: Ferrous Gluconate 324 MG TAB PO SCH ×2 (08:16→20:13)
[2018-12-28] MEDS: Loratadine 10 MG TAB PO SCH (08:19)
[2018-12-28] MEDS ORDERED: Dexamethasone 4 mg/ml Vial ONE (11:30)
[2018-12-28] MEDS ORDERED: Dexamethasone 20 MG/5 ML VIAL ONE (12:00)
[2018-12-28] MEDS ORDERED: Bupivacaine HCl 0.5%/Epinephrine 1:200,000/PF 30 ml Vial ONE (12:00)
[2018-12-29 05:41] LABS: Hemoglobin 8.2 g/dL (12.0-16.0); Mean Corpuscular HGB CONC 33.3 g/dL (32.0-36.0); Mean Corpuscular Hemoglobin 33.4 pg (27.0-31.0); Mean Platelet Volume 7.7 fL (7.4-10.4); Platelet Count 161 thou/uL (130-400); RBC Distribution Width 11.2 % (11.5-14.5); Red Blood Cell (RBC) Count 2.45 mill/uL (4.20-5.40); White Blood Cell (WBC) Count 4.9 thou/uL (4.8-10.8)
[2018-12-29] MEDS: HYDROcodone/Acetaminophen 10/325 mg Tablet PO PRN ×2 (07:15→11:45)
[2018-12-29] MEDS: Sodium Chloride 0.9% 1,000 ML IV SCH ×2 (08:53→08:58)
[2018-12-29] MEDS: Ferrous Gluconate 324 MG TAB PO SCH (08:54)
[2018-12-29] MEDS: Senokot S 8.6-50 MG TAB PO SCH (08:54)
[2018-12-29] MEDS: Aspirin 81 mg Enteric Coated Tablet PO SCH (08:54)
[2018-12-29] MEDS: Loratadine 10 MG TAB PO SCH (08:55)
[2018-12-29] MEDS: Multivitamin W/ Minerals 1 TAB PO SCH (08:55)
[2018-12-29] MEDS: Valsartan 80 MG TAB PO SCH (08:55)
[2018-12-29 12:20] VITALS: BP 149/80; TEMP 97.5
== END 2018-12-29 15:18 | disposition home or self-care (01) ==
LOC: SDC 06:43 → SJJU 10:14 → SDC 12-29 15:18
PROVIDERS: ATTEND Orthopaedic Surgery
PROC: 0SRC0JZ Replacement of Right Knee Joint with Synthetic Substitute, Open Approach (ICD-10-PCS; principal; 2018-12-26)
PROC: 8E0YXBZ Computer Assisted Procedure of Lower Extremity (ICD-10-PCS; 2018-12-26)
DX: M17.11 Unilateral primary osteoarthritis, right knee (principal); I10 Essential (primary) hypertension; K21.9 Gastro-esophageal reflux disease without esophagitis; R51 Headache; D64.9 Anemia, unspecified; Z96.652 Presence of left artificial knee joint; Z88.6 Allergy status to analgesic agent; Z79.899 Other long term (current) drug therapy
CPT/HCPCS: 20985; 27447; 80048; 80053; 85025 ×2; 85027; 97116 ×3; 97139 ×6; 97150; 97530 ×3; 98961; C1713; C1776; 36415; J0670; J0690; J1100; J1885; J2001; J2250; J2405; J2704; J2795; J3010; J3370; J3490; Q0163; S0020

== ENCOUNTER 2019-03-15 08:46 | Observation (INO) | payer MEDICARE ==
[2019-03-14 11:13] VITALS: BMI 25.4
[2019-03-15] MEDS ORDERED: Rocuronium Bromide 10 MG/ML (10ML VIAL) ONE (09:21)
[2019-03-15] MEDS ORDERED: Ondansetron PF 4 MG/2 ML Vial ONE (09:21)
[2019-03-15] MEDS ORDERED: Glycopyrrolate 0.2 MG/ML 5 ML SYRINGE ONE (09:21)
[2019-03-15] MEDS ORDERED: Dexamethasone 20 MG/5 ML VIAL ONE (09:21)
[2019-03-15] MEDS ORDERED: Lidocaine 1.5% w/Epi 1:200K 30 ML VIAL (Epid Use) ONE (09:21)
[2019-03-15] MEDS ORDERED: PROPOFOL 200 MG/20 ML VIAL ONE (09:21)
[2019-03-15 09:49] LABS: #Eosinphils 0.1 thou/uL (0.0-0.7); #Lymphocytes 1.1 thou/uL (1.20-3.40); #Monocytes 0.2 thou/uL (0.11-0.59); #Neutrophils 2.2 thou/uL (1.40-6.50); %Basophils 1.3 % (0.0-1.0); %Eosinophils 3.7 % (0.0-10.0); %Lymphocytes 28.8 % (21.0-51.0); %Monocytes 6.6 % (0.0-10.0); %Neutrophils 59.6 % (42.0-75.0); Hemoglobin 11.3 g/dL (12.0-16.0); Mean Corpuscular HGB CONC 33.2 g/dL (32.0-36.0); Mean Corpuscular Hemoglobin 32.4 pg (27.0-31.0); Mean Corpuscular Volume 97.7 fL (78.0-98.0); Platelet Count 199 thou/uL (130-400); RBC Distribution Width 13.1 % (11.5-14.5); Red Blood Cell (RBC) Count 3.49 mill/uL (4.20-5.40); White Blood Cell (WBC) Count 3.7 thou/uL (4.8-10.8)
[2019-03-15] MEDS ORDERED: Fentanyl 100 MCG/2 ML VIAL ONE (09:58)
[2019-03-15] MEDS ORDERED: Ropivacaine 0.2% HCl/PF 20 ML ONE (09:59)
[2019-03-15 10:08] LABS: Anion Gap 12 mmol/L (10-20); BUN (Urea Nitrogen) 25 mg/dL (9.8-20.1); Calc. Creatinine Clearance 55 mL/min (70-130); Calcium 9.5 mg/dL (7.8-10.44); Carbon Dioxide 22 mmol/L (23-31); Chloride 111 mmol/L (98-107); Estimated GFR-MDRD 62; Glucose 98 mg/dL (80-115); Potassium 3.9 mmol/L (3.5-5.1); Sodium 141 mmol/L (136-145)
[2019-03-15] MEDS ORDERED: Promethazine HCl 25 MG SUPP PR PRN (10:30)
[2019-03-15] MEDS ORDERED: Zolpidem Tartrate 5 MG TAB PO PRN (10:30)
[2019-03-15] MEDS ORDERED: Bupivacaine 0.25% 10 ML VIAL EPIDURAL PRN (10:30)
[2019-03-15] MEDS ORDERED: diphenhydrAMINE 50 MG/ML VIAL IVP PRN (10:30)
[2019-03-15] MEDS ORDERED: Acetaminophen 500 MG TAB PO PRN (10:30)
[2019-03-15] MEDS ORDERED: traMADol HCl 50 MG TAB PO PRN ×2 (10:30)
[2019-03-15] MEDS ORDERED: Hydrocerin (Eucerin) Cream 120 gm Jar TOP PRN (10:30)
[2019-03-15] MEDS ORDERED: Ondansetron PF 4 MG/2 ML Vial IVP PRN (10:30)
[2019-03-15] MEDS ORDERED: Promethazine HCl 25 MG/ML VIAL IM PRN (10:30)
[2019-03-15] MEDS ORDERED: Naloxone HCl 0.4 mg/ml Vial IVP PRN (10:30)
[2019-03-15] MEDS ORDERED: Naloxone HCl 0.4 mg/ml Vial IV PRN (10:30)
[2019-03-15] MEDS ORDERED: diphenhydrAMINE 25 MG CAP PO PRN (10:30)
[2019-03-15] MEDS ORDERED: diphenhydrAMINE 50 MG/ML VIAL IM PRN (10:30)
[2019-03-15] MEDS ORDERED: HYDROcodone/Acetaminophen 5/325 mg Tablet PO PRN ×2 (10:30)
[2019-03-15] MEDS ORDERED: fentaNYL Citrate/PF 500 MCG, Bupivacaine 10 ML in Sodium Chloride 0.9% 80 ML EPIDURAL SCH (10:30)
[2019-03-15] MEDS ORDERED: Ketorolac Tromethamine 30 MG/ML VIAL ONE (12:46)
[2019-03-15] MEDS: Ketorolac Tromethamine 30 MG/ML VIAL IVP SCH ×3 (12:53→23:32)
[2019-03-15] MEDS: Gabapentin 100 MG CAP PO SCH ×2 (16:15→20:23)
--- NOTE | 2019-03-15 17:00 | OP ---
DATE OF PROCEDURE: 03/15/2019 PREOPERATIVE DIAGNOSIS: Stiff right knee, status post total knee replacement. POSTOPERATIVE DIAGNOSIS: Stiff right knee, status post total knee replacement. PROCEDURE PERFORMED: Closed right knee manipulation. NOZZLE CEMENT SPRAYER HELPER: None. ESTIMATED BLOOD LOSS: None. COMPLICATIONS: None. ANESTHESIA: The patient had an epidural as well as a general. DISPOSITION: She did go to recovery room in stable condition. INDICATIONS: A 68-year-old female, who is status post total knee replacement with some stiffness. At this time, she is presenting for manipulation. DESCRIPTION OF PROCEDURE: After all appropriate consent forms were explained and signed, the patient was taken back to the operating room and at this time was given a general anesthetic. Preoperatively, she was given an epidural and once she had a general anesthetic, was completely paralyzed. We started a slow process of slowly bending, manipulating the knee. Full extension was there from the beginning, without any resistance whatsoever. Just bending the patient's hip, the leg was at 80 degrees. By the end of the procedure, she was approximately 126 upon multiple measurements. I cycled her knee at least a couple 100 times through this full range of motion without any issues. No crepitus. There were no loud noises when doing this. This was just a nice,slow, contained manipulation. The patient did have a Pisano catheter placed secondary to the epidural before the procedure started and she did receive 2 g of IV Ancef. Once this was done, she was then awakened. She was taken to recovery room in stable condition to start a CPM in recovery room at 0 to 120 degrees. Job ID: [id number] [facility]
[2019-03-16] MEDS: Ketorolac Tromethamine 30 MG/ML VIAL IVP SCH ×2 (05:29→11:52)
[2019-03-16] MEDS ORDERED: Valsartan 80 MG TAB PO SCH (09:00)
[2019-03-16] MEDS ORDERED: Loratadine 10 MG TAB PO SCH (09:00)
[2019-03-16] MEDS: Gabapentin 100 MG CAP PO SCH (09:25)
[2019-03-16 11:59] VITALS: BP 120/70; TEMP 97.5
--- NOTE | 2019-03-17 13:26 | DIS ---
DATE OF ADMISSION: 03/15/2019 DATE OF DISCHARGE: 03/16/2019 This is Antonio Ontiveros PA-C dictating a report for Carlos Gay MD. PREOPERATIVE DIAGNOSIS: Semi-frozen right knee after knee replacement. 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 PROCEDURE: The patient underwent a left knee manipulation under anesthesia. HOSPITAL STAY: She has done quite well. She has had no postop complications, and she is ready to discharge home. DISCHARGE CONDITION: Good/stable. DISPOSITION: Home with family. FOLLOWUP: Follow up would be in 10 to 14 days or sooner if there are problems and/or concerns. DISCHARGE MEDICATIONS: Given with usage instructions. Job ID: [id number]
[2019-03-17] MEDS ORDERED: CeleCOXIB 100 MG CAP PO SCH (21:00)
== END 2019-03-16 13:00 | disposition home or self-care (01) ==
LOC: SDC 08:46 → SURG B 15:29
PROVIDERS: ADMIT Orthopaedic Surgery; ATTEND Orthopaedic Surgery
PROC: 0SNCXZZ Release Right Knee Joint, External Approach (ICD-10-PCS; principal; 2019-03-15)
DX: M25.661 Stiffness of right knee, not elsewhere classified (principal); K21.9 Gastro-esophageal reflux disease without esophagitis; Z79.899 Other long term (current) drug therapy; Z88.6 Allergy status to analgesic agent; Z96.653 Presence of artificial knee joint, bilateral
CPT/HCPCS: 27570; 80048; 85025; 96374; 96376 ×2; 97116; 97139 ×4; G0378 ×2; J3010 ×2; 36415; J0690; J1100; J1885; J2001; J2405; J2704; J2795; J3490